=== PATIENT | female | born 1995 | race Caucasian/White ===

== ENCOUNTER 2021-05-30 11:51 | Inpatient (IN) | payer BC ==
[2021-05-30] MEDS ORDERED: Acetaminophen 325 MG Tab PO PRN (12:59)
[2021-05-30] MEDS ORDERED: Nalbuphine 10 MG/1 ML Vial IVPUSH PRN (12:59)
[2021-05-30] MEDS ORDERED: Sodium Chloride 0.9% 10 ML Syringe FLUSH PRN (12:59)
[2021-05-30] MEDS ORDERED: Misoprostol 25 MCG (1/4 of 100 MCG) Tab VAG PRN (12:59)
[2021-05-30] MEDS ORDERED: Oxytocin/Lactated Ringers 10 UNIT/1,000 ML BAG IV SCH (13:00)
[2021-05-30] MEDS ORDERED: Lactated Ringers 1,000 ML IV SCH ×2 (13:00→23:45)
--- NOTE | 2021-05-30 13:11 | PCM.LDHP ---
L&D History of Present Illness - General Date of Service: 05/30/21 Admit Problem/Dx: Patient Status Order with Admit Dx/Problem 05/30/21 13:00 Patient Status [ADT] Routine Admission Diagnosis/Problem Admission Diagnosis/Problem 41 weeks gestation of Source of Information: Patient History Limitations: Reports: No Limitations - History of Present Illness Introduction:: Araceli Zhang is a 25-year-old G1, P0 female at 41 weeks 1 day (ADAN 05/22/2021) by a 5-week ultrasound who presents for induction of labor in the se tting of late term . Patient had been checked in the office on her appointment on 05/27/2021 and had membrane stripping performed at that time without any significant contractions since having the membranes stripped. She states that she had been having some intermittent low back pain that was not consistent or regular. She denies any leaking of fluid or vaginal bleeding. Reports that she did have some mucus discharge. She reports good movement. Location, : Reports: Lower back Quality: Reports: Pressure, Throbbing Severity: Mild Associated Symptoms: Denies: vaginal bleeding, vaginal discharge, vaginal fluid Present Illness Comments:: Araceli Zhang is a 25-year-old G1, P0 female at 41 weeks 1 day (ADAN 05/22/2021) by a 5-week ultrasound who presents for induction of labor in the setting of late term . She has had routine care with Dr. Woo starting at 5 weeks gestational age. She denies any complications during this . She received Tdap vaccine on 03/29/2021. She received the influenza vaccine on 09/07/2020. She has not had any concerns throughout the . Her is complicated by: * Obesity in with BMI of 42 [facility] history G1: Current labs Blood type: O+ Antibody screen: Negative First trimester hematocrit/hemoglobin: 37.6%/12.8 on 11/23/2020 Platelets: 265 on 11/23/2020 Urine culture: Negative Rubella status: Immune Hepatitis B surface antigen: Negative RPR: Negative Hepatitis C: Negative HIV: Negative Gonorrhea: Negative Chlamydia: Negative One hour glucose tolerance test: 100 Second trimester hematocrit/hemoglobin: 37.0%/12.5 on 02/01/2021 Platelets: 287 on 02/01/2021 GBS status: Negative - Related Data Allergies/Adverse Reactions: Allergies Allergy/AdvReac Type Severity Reaction Status Date / Time Sulfa (Sulfonamide Allergy Cannot Verified 10/24/16 13:46 Antibiotics) Remember Home Medications: Home Meds Acetaminophen/oxyCODONE [Percocet 325-5 MG] 1 tab PO Q6H PRN #10 tablet 10/24/16 [Rx] Pnv No.95/Ferrous Fum/Folic AC [ Caplet] 1 tab-cap PO DAILY 05/30/21 [History] Past Medical History - Past Health History Medical/Surgical History: Denies Medical/Surgical History - Past Surgical History HEENT Surgical History: Reports: Oral Surgery, Other (See Below) ([place] teeth extraction) Social & Family History - Tobacco Use Tobacco Use Status *Q: Never Tobacco User Tobacco Use Within Last Twelve Months: No - Tobacco Core Measures Tobacco Use/Smoking Within Last 30 Days: No Smokeless Tobacco Use in Last 30 Days: No - Caffeine Use Caffeine Use: Reports: None - Alcohol Use Alcohol Use History: No Alcohol Use in Last Twelve Months: No - Recreational Drug Use Recreational Drug Use: No Drug Use in Last 12 Months: No - Living Situation & Occupation Living situation: Reports: , with Spouse H&P Review of Systems - Review of Systems: Review Of Systems: See Below General: Denies: Fever, Chills, Malaise, Weakness, Fatigue HEENT: Reports: Glasses. Denies: Headaches, Rhinitis, Post Nasal Drip, Sinus Congestion, Sore Throat, Visual Changes Pulmonary: Denies: Shortness of Breath, Wheezing, Pleuritic Chest Pain, Cough Cardiovascular: Denies: Chest Pain, Palpitations, Dyspnea on Exertion, Orthopnea Gastrointestinal: Denies: Abdominal Pain, Constipation, Diarrhea, Nausea, Vomiting Genitourinary: Denies: Dysuria, Frequency, Burning, Pain, Urgency Musculoskeletal: Reports: Back Pain Skin: Denies: Rash, Lumps Psychiatric: Denies: Depression, Anxiety L&D Exam - Exam Exam: See Below - Vital Signs Vital Signs: Last Vital Signs Temp 36.7 C 05/30/21 12:09 Pulse 86 05/30/21 12:09 Resp 16 05/30/21 12:09 BP 145/88 H 05/30/21 12:09 Pulse Ox 98 05/30/21 12:09 Weight: 117.934 kg - OB Specific Contraction Duration (sec): 60-75 Contraction Frequency (min): 4-7 Contraction Intensity: Mild Movement: Active Heart Tones: Present Heart Tones per Min: 130 (+15 x 15 accelerations, no decelerations) Heart Rate (FHR) Variability: Moderate (6-25 bmp) Presentation: Vertex Estimated Weight: 8-8.5 pounds by Milo - Webster Score Webster Score Cervix Position: Posterior Webster Score Consistency: Soft Webster Score Effacement: >80% (80%) Webster Score Dilation: 1-2 cm (2 cm) Webster Score Infant's Station: -3 Webster Score Total: 6 - Exam General: Alert, Oriented HEENT: Conjunctiva Clear, EOMI Neck: Supple, Trachea Midline Lungs: Clear to Auscultation, Normal Respiratory Effort Cardiovascular: Regular Rate, Regular Rhythm GI/Abdominal Exam: Soft, Non-Tender, No Distention, Other. No: Guarding, Rigid, Rebound Genitourinary: Normal external exam, Cervical dilitation (1 cm by visual inspection), Other (A 16 Lithuanian Menezes catheter was placed using direct visualization with a speculum and the catheter was filled with 40 mL of sterile saline. Mother and tolerated procedure without difficulty.) Skin: Warm, Dry, Intact Psychiatric: Alert, Normal Affect, Normal Mood - Problem List (1) 41 weeks gestation of SNOMED Code(s): 97720353 ICD Code: Z3A.41 - 41 WEEKS GESTATION OF Status: Acute Current Visit: Yes (2) Obesity affecting SNOMED Code(s): 699230594779, 390525625654 ICD Code: O99.210 - OBESITY COMPLICATING , UNSPECIFIED TRIMESTER Status: Acute Current Visit: Yes Problem List Initiated/Reviewed/Updated: Yes Orders Last 24hrs: Active Orders 24 hr Category Date Time Status Patient Status [ADT] Routine ADT 05/30/21 13:00 Ordered Activity as Tolerated [RC] PFP Care 05/30/21 13:00 Ordered Communication Order [RC] ASDIRECTED Care 05/30/21 13:00 Ordered Communication Order [RC] ASDIRECTED Care 05/30/21 13:00 Ordered Communication Order [RC] ASDIRECTED Care 05/30/21 13:00 Ordered Communication Order [RC] ASDIRECTED Care 05/30/21 13:00 Ordered Heart Tones [RC] ASDIRECTED Care 05/30/21 13:01 Ordered Monitoring [RC] INTERMITTENT Care 05/30/21 13:00 Ordered Non Stress Test [RC] PER UNIT ROUTINE Care 05/30/21 13:00 Ordered Notify Provider Vital Signs [RC] PRN Care 05/30/21 13:02 Ordered Notify Provider [RC] ASDIRECTED Care 05/30/21 13:00 Ordered Notify Provider [RC] ASDIRECTED Care 05/30/21 13:04 Ordered Notify Provider [RC] PFP Care 05/30/21 13:00 Ordered Notify Provider [RC] PRN Care 05/30/21 13:00 Ordered Peripheral IV Care [RC] . DIRECTED Care 05/30/21 13:01 Ordered Pump Management, Intrathecal [RC] ASDIRECTED Care 05/30/21 13:01 Ordered Urinary Catheter Assessment [RC] ASDIRECTED Care 05/30/21 12:59 Ordered Vaginal Exam [RC] ASDIRECTED Care 05/30/21 13:00 Ordered Vital Signs [RC] ASDIRECTED Care 05/30/21 13:00 Ordered Vital Signs [RC] PER UNIT ROUTINE Care 05/30/21 13:00 Ordered Regular Diet [DIET] Diet 05/30/21 Lunch Ordered CBC WITH AUTO DIFF [HEME] Routine Lab 05/30/21 12:59 Ordered COMPREHENSIVE METABOLIC PN,CMP [CHEM] Routine Lab 05/30/21 12:59 Ordered PROTEIN/CREATININE RATIO,URINE [URCHEM] Routine Lab 05/30/21 12:59 Ordered RAPID PLASMA REAGIN,RPR [CHEM] Routine Lab 05/30/21 13:00 Ordered TYPE AND SCREEN [BBK] Routine Lab 05/30/21 12:59 Ordered Acetaminophen [TylenoL] Med 05/30/21 12:59 Ordered 650 mg PO Q6H PRN Lactated Ringers [Ringers, Lactated] 1,000 ml Med 05/30/21 13:00 Ordered IV ASDIRECTED Nalbuphine [Nubain] Med 05/30/21 12:59 Ordered 10 mg IVPUSH Q2H PRN Oxytocin/Lactated Ringers [Pitocin in LR 10 Units/1,000 Med 05/30/21 13:00 Ordered ML] 10 unit in 1,000 ml IV .CONTINUOUS Sodium Chloride 0.9% [Saline Flush] Med 05/30/21 12:59 Ordered 10 ml FLUSH ASDIRECTED PRN miSOPROStoL [Cytotec] Med 05/30/21 12:59 Ordered 25 mcg VAG Q4H PRN Electronic Heart Tones Ext w TOCO [WOMSER] Oth 05/30/21 13:00 Ordered Routine Electronic Heart Tones Internal [WOMSER] Per Unit Oth 05/30/21 13:00 Ordered Routine Peripheral IV Insertion Adult [OM.PC] Routine Oth 05/30/21 13:00 Ordered Resuscitation Status Routine Resus Stat 05/30/21 12:59 Ordered Assessment/Plan Comment:: Araceli Zhang is a 25-year-old G1, P0 female at 41 weeks 1 day (ADAN 05/22/2021) undergoing induction of labor in the setting of late term * Refer to observation for elective induction of labor * Patient had placement of a 16 [place]ian Menezes bulb catheter with direct visualization and the Menezes bulb was filled with 40 mL of sterile saline. Mother and infant tolerated procedure without difficulty. * Start induction of labor with Cytotec 25 mcg vaginally now and every 4 hours * Intermittent monitoring while on Cytotec with monitoring for 30 minutes after placement of Cytotec and may ambulate as tolerated with category 1 monitoring * Place IV and have Lactated Ringer's at 125 ml/hr if not tolerating regular diet * May have regular diet while on Cytotec induction * Activity as tolerated * May have epidural as desired * Plans to breast-feed after delivery * Patient with 1 mild range blood pressure with a value of 145/88 and we will get labs including CBC, CMP, LDH and urine protein/creatinine ratio. We will continue to monitor blood pressures closely throughout the induction to ensure that there is not any evidence of gestational hypertension or preeclampsia * Anticipate vaginal delivery unless otherwise indicated Gus Gomez MD 1:17 PM 05/30/2021
--- NOTE | 2021-05-30 14:17 | PCM.PREANE ---
Preanesthetic Assessment - Procedure Proposed Procedure: Labor epidural - Anesthesia/Transfusion/Family Hx Anesthesia History: Prior Anesthesia Without Reaction Family History of Anesthesia Reaction: No Transfusion History: No Prior Transfusion(s) Intubation History: Unknown - Review of Systems General: No Symptoms Pulmonary: No Symptoms Cardiovascular: Edema (Lower extremities) Gastrointestinal: Abdominal Pain (uterine contractions) Neurological: Tingling (Tingling to pointer, middle, and ring finger tips that occurred during ) - Physical Assessment NPO Status Date: 05/30/21 NPO Status Time: 14:10 Vital Signs: Last Vital Signs Temp 98.0 F 05/30/21 12:09 Pulse 86 05/30/21 12:09 Resp 16 05/30/21 12:09 BP 145/88 H 05/30/21 12:09 Pulse Ox 98 05/30/21 12:09 Height: 1.68 m Weight: 117.934 kg ASA Class: 2 Mental Status: Alert & Oriented x3 Airway Class: Mallampati = 2 Dentition: Reports: Normal Dentition Thyro-Mental Finger Breadths: 3 Mouth Opening Finger Breadths: 3 Lungs: Clear to Auscultation, Normal Respiratory Effort Cardiovascular: Regular Rate, Regular Rhythm - Lab Values: Laboratory Last Values WBC 9.06 K/mm3 (3.98-10.04) 05/30/21 13:19 RBC 3.62 M/mm3 (3.98-5.22) L 05/30/21 13:19 Hgb 12.1 gm/dl (11.2-15.7) 05/30/21 13:19 Hct 36.4 % (34.1-44.9) 05/30/21 13:19 MCV 100.6 fl (79.4-94.8) H 05/30/21 13:19 MCH 33.4 pg (25.6-32.2) H 05/30/21 13:19 MCHC 33.2 g/dl (32.2-35.5) 05/30/21 13:19 RDW Std Deviation 45.9 fL (36.4-46.3) 05/30/21 13:19 Plt Count 234 K/mm3 (182-369) 05/30/21 13:19 MPV 11.4 fl (9.4-12.3) 05/30/21 13:19 Neut % (Auto) 65.6 % (34.0-71.1) 05/30/21 13:19 Lymph % (Auto) 21.1 % (19.3-51.7) 05/30/21 13:19 [place] % (Auto) 11.7 % (4.7-12.5) 05/30/21 13:19 Eos % (Auto) 0.9 (0.7-5.8) 05/30/21 13:19 Baso % (Auto) 0.3 % (0.1-1.2) 05/30/21 13:19 Neut # (Auto) 5.94 K/mm3 (1.56-6.13) 05/30/21 13:19 Lymph # (Auto) 1.91 K/mm3 (1.18-3.74) 05/30/21 13:19 [place] # (Auto) 1.06 K/mm3 (0.24-0.36) H 05/30/21 13:19 Eos # (Auto) 0.08 K/mm3 (0.04-0.36) 05/30/21 13:19 Baso # (Auto) 0.03 K/mm3 (0.01-0.08) 05/30/21 13:19 Sodium 140 mEq/L (136-145) 05/30/21 13:19 Potassium 4.5 mEq/L (3.5-5.1) 05/30/21 13:19 Chloride 106 mEq/L (98-107) 05/30/21 13:19 Carbon Dioxide 25 mEq/L (21-32) 05/30/21 13:19 Anion Gap 13.5 (5-15) 05/30/21 13:19 BUN 10 mg/dL (7-18) 05/30/21 13:19 Creatinine 0.9 mg/dL (0.55-1.02) 05/30/21 13:19 Est Cr Clr Drug Dosing 88.68 mL/min 05/30/21 13:19 Estimated GFR (MDRD) > 60 mL/min (>60) 05/30/21 13:19 BUN/Creatinine Ratio 11.1 (14-18) L 05/30/21 13:19 Glucose 74 mg/dL (70-99) 05/30/21 13:19 Calcium 8.6 mg/dL (8.5-10.1) 05/30/21 13:19 Total Bilirubin 0.3 mg/dL (0.2-1.0) 05/30/21 13:19 AST 21 U/L (15-37) 05/30/21 13:19 ALT 15 U/L (14-59) 05/30/21 13:19 Alkaline Phosphatase 217 U/L (46-116) H 05/30/21 13:19 Total Protein 5.9 g/dl (6.4-8.2) L 05/30/21 13:19 Albumin 2.2 g/dl (3.4-5.0) L 05/30/21 13:19 Globulin 3.7 gm/dL 05/30/21 13:19 Albumin/Globulin Ratio 0.6 (1-2) L 05/30/21 13:19 Labs reviewed and okay to proceed - Allergies Allergies/Adverse Reactions: Allergies Allergy/AdvReac Type Severity Reaction Status Date / Time Sulfa (Sulfonamide Allergy Cannot Verified 10/24/16 13:46 Antibiotics) Remember - Blood Product(s) Available: None - Acknowledgements Anesthesia Type Planned: Epidural Pt an Appropriate Candidate for the Planned Anesthesia: Yes Alternatives and Risks of Anesthesia Discussed w Pt/Guardian: Yes Pt/Guardian Understands and Agrees with Anesthesia Plan: Yes PreAnesthesia Questionnaire - Past Health History Medical/Surgical History: Denies Medical/Surgical History Gastrointestinal History: Reports: GERD 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 Musculoskeletal History: History of shoulder contusion - Past Surgical History HEENT Surgical History: Reports: Oral Surgery, Other (See Below) ([place] teeth extraction) - SUBSTANCE USE Tobacco Use Status *Q: Never Tobacco User Tobacco Use Within Last Twelve Months: No Second Hand Smoke Exposure: No Recreational Drug Use History: No - HOME MEDS Home Medications: Home Meds Acetaminophen/oxyCODONE [Percocet 325-5 MG] 1 tab PO Q6H PRN #10 tablet 10/24/16 [Rx] Pnv No.95/Ferrous Fum/Folic AC [ Caplet] 1 tab-cap PO DAILY 05/30/21 [History] - CURRENT (IN HOUSE) MEDS Current Meds: Current Medications Acetaminophen (Acetaminophen 325 Mg Tab) 650 mg PO Q6H PRN PRN Reason: Pain (Mild 1-3) and fever Lactated Ringer's (Ringers, Lactated) 1,000 mls @ 100 mls/hr IV ASDIRECTED ALEJANDRO Oxytocin/Lactated Ringer's (Pitocin In Lr 10 Units/1,000 Ml) 10 unit in 1,000 mls @ 100 mls/hr IV .CONTINUOUS ALEJANDRO Misoprostol (Misoprostol 25 Mcg (1/4 Of 100 Mcg) Tab) 25 mcg VAG Q4H PRN PRN Reason: cervical ripening Last Admin: 05/30/21 13:29 Dose: 25 mcg Documented by: Nalbuphine HCl (Nalbuphine 10 Mg/1 Ml Vial) 10 mg IVPUSH Q2H PRN PRN Reason: Pain Sodium Chloride (Sodium Chloride 0.9% 10 Ml Syringe) 10 ml FLUSH ASDIRECTED PRN PRN Reason: Keep Vein Open
[2021-05-30] MEDS ORDERED: ePHEDrine 50 MG/ML SDV IVPUSH PRN (14:36)
[2021-05-30] MEDS ORDERED: fentaNYL 100 MCG/2 ML SDV EPIDUR PRN (14:36)
[2021-05-30] MEDS ORDERED: diphenhydrAMINE 50 MG/ML SDV IVPUSH PRN (14:36)
[2021-05-30] MEDS: Oxytocin/Lactated Ringers 10 UNIT/1,000 ML BAG IV SCH (17:38)
--- NOTE | 2021-05-30 17:50 | PCM.PNLD ---
Labor Progress Note - VS & Meds Vital Signs: Last Vital Signs Temp 36.7 C 05/30/21 12:09 Pulse 86 05/30/21 12:09 Resp 16 05/30/21 12:09 BP 145/88 H 05/30/21 12:09 Pulse Ox 98 05/30/21 12:09 Active Medications: Current Medications Acetaminophen (Acetaminophen 325 Mg Tab) 650 mg PO Q6H PRN PRN Reason: Pain (Mild 1-3) and fever Diphenhydramine HCl (Diphenhydramine 50 Mg/Ml Sdv) 25 mg IVPUSH Q6H PRN PRN Reason: pruritis Ephedrine Sulfate (Ephedrine 50 Mg/Ml Sdv) 5 mg IVPUSH ASDIRECTED PRN PRN Reason: Hypotension Fentanyl (Fentanyl 100 Mcg/2 Ml Sdv) 100 mcg EPIDUR Q3H PRN PRN Reason: Pain Fentanyl/Bupivacaine HCl (Bupivacaine/Fentanyl/Ns 100 Ml Bag) 100 ml EPIDUR ASDIRECTED PRN PRN Reason: Pain Lactated Ringer's (Ringers, Lactated) 1,000 mls @ 100 mls/hr IV ASDIRECTED ALEJANDRO Last Admin: 05/30/21 17:24 Dose: 100 mls/hr Documented by: Oxytocin/Lactated Ringer's (Pitocin In Lr 10 Units/1,000 Ml) 10 unit in 1,000 mls @ 100 mls/hr IV .CONTINUOUS ALEJANDRO Oxytocin/Lactated Ringer's (Pitocin In Lr 10 Units/1,000 Ml) 10 unit in 1,000 mls @ 12 mls/hr IV TITRATE ALEJANDRO; Protocol Last Admin: 05/30/21 17:38 Dose: 2 munits/min, 12 mls/hr Documented by: Misoprostol (Misoprostol 25 Mcg (1/4 Of 100 Mcg) Tab) 25 mcg VAG Q4H PRN PRN Reason: cervical ripening Last Admin: 05/30/21 13:29 Dose: 25 mcg Documented by: Nalbuphine HCl (Nalbuphine 10 Mg/1 Ml Vial) 10 mg IVPUSH Q2H PRN PRN Reason: Pain Sodium Chloride (Sodium Chloride 0.9% 10 Ml Syringe) 10 ml FLUSH ASDIRECTED PRN PRN Reason: Keep Vein Open - Uterine Contractions Contraction Frequency (min): 3-7 Contraction Duration (sec): 60-75 Contraction Intensity: Mild to Moderate Uterine Resting Tone: Soft - Monitoring Monitor Mode: Doppler/Auscultation Heart Rate (FHR) Baseline: 125 Heart Rate (FHR) Variability: Moderate (6-25 bmp) Accelerations: Present, 15x15 Decelerations: None Strip Review: Category I - Vaginal Exam Dilation (cm): 3 Effacement (Percent): 80 Station: -2 Cervical Position: Midposition Sterile Vaginal Exam Performed By: Gus Gomez Vaginal Exam Comment: The transcervical Menezes bulb was able to be removed with gentle traction and cervical exam was performed after removal of the Menezes bulb. - Labor Progress (Free Text) Labor Progress: Araceli Zhang is a 25-year-old G1, P0 at 41 weeks 1 day undergoing induction of labor for late term with new diagnosis of preeclampsia in given ongoing mild range blood pressures and elevated urine protein/creatinine ratio of 4.9 * Patient with previous transcervical Menezes bulb in place that was able to be removed at this time. Cervix was 3/80/-2/soft/mid position after removal of the Menezes bulb. * Given the dilation is fairly stable at 3 cm which is not significantly dilated at this time artificial rupture membranes was not performed * Patient had received 1 dose of Cytotec with the placement of the Menezes bulb * Plan to transition to Pitocin with the cervix dilated to 3 cm after the Menezes bulb at this time * Routine vitals at this time with close monitoring of her blood pressure for any severe range blood pressures which may indicate severe features of preeclampsia * Patient denies any headache, vision changes or epigastric pain. * Patient has preeclampsia without severe features given the findings of ongoing mild range blood pressures with elevated urine protein/creatinine ratio of 4.9. The remainder of her labs were within normal limits and were not showing any elevated values. * Patient may have epidural if she desires * Plan to recheck later this evening to see if she is having ongoing dilation of the cervix and we will plan for artificial rupture membranes at that time * Anticipate vaginal delivery unless otherwise indicated Gus Gomez MD 5:49 PM 05/29/2021
[2021-05-30] MEDS ORDERED: Magnesium Sulfate/Water 50 ML ONE (21:28)
[2021-05-30] MEDS ORDERED: Magnesium Sulfate/Water 40 GM/1,000 ML BAG ONE (21:28)
[2021-05-30] MEDS: Labetalol 100 MG/20 ML MDV ONE ×2 (21:30→21:54)
[2021-05-30] MEDS ORDERED: Ondansetron 4 MG/2 ML SDV ONE (21:48)
[2021-05-30] MEDS ORDERED: Magnesium Sulfate/Water 40 GM/1,000 ML BAG IV SCH (22:00)
[2021-05-30] MEDS: Bupivacaine/fentaNYL/NS 100 ML Bag EPIDUR PRN (22:01)
--- NOTE | 2021-05-30 22:01 | PCM.PNLD ---
Labor Progress Note - VS & Meds Vital Signs: Last Vital Signs Temp 36.7 C 05/30/21 12:09 Pulse 86 05/30/21 12:09 Resp 16 05/30/21 12:09 BP 145/88 H 05/30/21 12:09 Pulse Ox 98 05/30/21 12:09 Active Medications: Current Medications Acetaminophen (Acetaminophen 325 Mg Tab) 650 mg PO Q6H PRN PRN Reason: Pain (Mild 1-3) and fever Diphenhydramine HCl (Diphenhydramine 50 Mg/Ml Sdv) 25 mg IVPUSH Q6H PRN PRN Reason: pruritis Ephedrine Sulfate (Ephedrine 50 Mg/Ml Sdv) 5 mg IVPUSH ASDIRECTED PRN PRN Reason: Hypotension Fentanyl (Fentanyl 100 Mcg/2 Ml Sdv) 100 mcg EPIDUR Q3H PRN PRN Reason: Pain Fentanyl/Bupivacaine HCl (Bupivacaine/Fentanyl/Ns 100 Ml Bag) 100 ml EPIDUR ASDIRECTED PRN PRN Reason: Pain Lactated Ringer's (Ringers, Lactated) 1,000 mls @ 100 mls/hr IV ASDIRECTED ALEJANDRO Last Admin: 05/30/21 17:24 Dose: 100 mls/hr Documented by: Oxytocin/Lactated Ringer's (Pitocin In Lr 10 Units/1,000 Ml) 10 unit in 1,000 mls @ 100 mls/hr IV .CONTINUOUS ALEJANDRO Oxytocin/Lactated Ringer's (Pitocin In Lr 10 Units/1,000 Ml) 10 unit in 1,000 mls @ 12 mls/hr IV TITRATE ALEJANDRO; Protocol Last Titration: 05/30/21 18:20 Dose: 4 munits/min, 24 mls/hr Documented by: Misoprostol (Misoprostol 25 Mcg (1/4 Of 100 Mcg) Tab) 25 mcg VAG Q4H PRN PRN Reason: cervical ripening Last Admin: 05/30/21 13:29 Dose: 25 mcg Documented by: Nalbuphine HCl (Nalbuphine 10 Mg/1 Ml Vial) 10 mg IVPUSH Q2H PRN PRN Reason: Pain Sodium Chloride (Sodium Chloride 0.9% 10 Ml Syringe) 10 ml FLUSH ASDIRECTED PRN PRN Reason: Keep Vein Open Discontinued Medications Magnesium Sulfate (Magnesium Sulfate In Water 4 Gm/50 Ml) Confirm Administered Dose 50 mls @ as directed .ROUTE .STK-MED ONE Stop: 05/30/21 21:29 Magnesium Sulfate (Magnesium Sulfate In Water 40 Gm/1000 Ml) Confirm Administered Dose 40 gm in 1,000 mls @ as directed .ROUTE .STK-MED ONE Stop: 05/30/21 21:29 Labetalol HCl (Labetalol 100 Mg/20 Ml Mdv) Confirm Administered Dose 100 mg .ROUTE .STK-MED ONE Stop: 05/30/21 21:22 Ondansetron HCl (Ondansetron 4 Mg/2 Ml Sdv) Confirm Administered Dose 4 mg .ROUTE .STK-MED ONE Stop: 05/30/21 21:49 - Uterine Contractions Contraction Frequency (min): 2-4 Contraction Duration (sec): 60-75 Contraction Intensity: Moderate to Strong Uterine Resting Tone: Soft - Monitoring Monitor Mode: Doppler/Auscultation Heart Rate (FHR) Baseline: 120 Heart Rate (FHR) Variability: Moderate (6-25 bmp) Accelerations: Present, 15x15 Decelerations: Early, Variable (intermittent variable decelerations with contractions) Strip Review: Category II - Vaginal Exam Dilation (cm): 4 Effacement (Percent): 90 Station: -2 Cervical Position: Midposition Sterile Vaginal Exam Performed By: Gus Gomez Vaginal Exam Comment: Artificial rupture membranes performed with return of moderate amount of clear fluid. Mother and infant tolerated procedure without difficulty. - Labor Progress (Free Text) Labor Progress: Araceli Zhang is a 25-year-old G1, P0 at 41 weeks 1 day undergoing induction of labor for late term with new diagnosis of preeclampsia with severe features with new onset sustained severe range blood pressures with treatment with labetalol x2 doses * Patient with artificial rupture membranes with return of moderate amount of clear fluid. Mother and tolerated procedure without difficulty * Patient with sustained severe range blood pressures and was treated with labetalol 20 mg IV and then 40 mg IV. * Start on magnesium sulfate IV with a 4 g bolus then 2 g/h afterwards with plan to continue for 24 hours after delivery * Continue with close monitoring of vitals vitals to ensure that she is not having any severe range pressures which would indicate additional need for medical therapy * Patient denies any headache, vision changes or epigastric pain. * Continue Pitocin for augmentation of labor * Patient may have epidural if she desires * Anticipate vaginal delivery unless otherwise indicated Gus Gomez MD 10:06 PM 05/29/2021
[2021-05-30] MEDS ORDERED: Calcium Gluconate 10% 1 GM/10 ML SDV IV PRN (22:11)
[2021-05-30] MEDS ORDERED: Magnesium Sulfate/Water 4 GM in Premix Bag 1 BAG IV ONE (22:16)
[2021-05-30] MEDS ORDERED: Magnesium Sulfate/Water 2 GM in Premix Bag 1 BAG IV ONE (22:16)
[2021-05-31] MEDS ORDERED: Calcium Carbonate 500 MG Tab.Chew PO PRN (03:27)
[2021-05-31] MEDS: Bupivacaine/fentaNYL/NS 100 ML Bag EPIDUR PRN (05:12)
[2021-05-31] MEDS ORDERED: Dexmedetomidine 200 MCG/2 ML SDV ONE (07:18)
[2021-05-31] MEDS ORDERED: fentaNYL 100 MCG/2 ML SDV ONE (07:22)
[2021-05-31] MEDS: Oxytocin/Lactated Ringers 10 UNIT/1,000 ML BAG IV SCH (08:56)
[2021-05-31] MEDS ORDERED: Misoprostol 200 MCG Tab PO ONE (12:30)
[2021-05-31] MEDS ORDERED: Sodium Chloride 0.9% 1,000 ML ONE (12:41)
[2021-05-31] MEDS ORDERED: Sodium Chloride 0.9% 1,000 ML IV SCH (12:45)
[2021-05-31] MEDS ORDERED: Misoprostol 200 MCG Tab ONE (13:00)
[2021-05-31] MEDS ORDERED: Sodium Chloride 0.9% 500 ML ONE (13:08)
--- NOTE | 2021-05-31 14:06 | PCM.SN.2 ---
- Free Text/Narrative Note: Stage I - Patient presented for induction of labor. Menezes bulb. AROM. Pitocin. Elevated blood pressures requiring labetolol. Diagnosed with pre-ecclampsia. Magnesium initiated. Progressed to complete with overall reassuring heart tones. Stage II - of viable male, weight 8#11 oz. 4/9 apgars at 1222. Head de livered in controlled manner over intact perineum. Body and shoulders followed atraumatically. Cord clamped and cut and to warmer. Cord blood collected. Stage III - of intact placenta. Immediately vigorous bleeding per vagina. Bladder emptied with straight catheter. Bimanual massage revealed boggy uterus. Continued bleeding. Magnesium discontinued. Cytotec 600 mcg buccal given. TXA initiated. Vigourous bleeding continued. Decision made to obtain labs and emergency release of 2 units pRBC and obtain labs. Bakri placed in usual fashion. INstilled with 360. QBL 3000. Bleeding after bakri minimal.
[2021-05-31] MEDS ORDERED: Lidocaine 1.5% with EPINEPHrine 1:200,000 5 ML Amp ONE (16:00)
[2021-05-31] MEDS ORDERED: Bupivacaine 0.25% 10 ML SDV ONE (16:00)
[2021-05-31] MEDS ORDERED: Witch Hazel Medicated Pads 40/Jar TOP PRN (16:06)
[2021-05-31] MEDS ORDERED: Benzocaine/Menthol 20%-0.5% Spray 56 GM Canister TOP PRN (16:06)
[2021-05-31] MEDS ORDERED: cefOXitin 1 GM in Premix Bag 1 BAG IV ONE (18:50)
--- NOTE | 2021-05-31 19:05 | PCM.SN.2 ---
- Free Text/Narrative Note: S- Feeling well. Some pain. No complaints. No headaches or visual changes O- t- 100.1, Tmax - 100.1. Blood pressures 128/85 Fundus above umbilicus with bakri in place. Output from bakri 50 mL A - Doing well, minimal output from bakri CBC minimal drop after significant hemorrhage and 2 uPRBC. Will recheck in morning Severe pre-e - magnesium discontinued during acute hemorrhage. Given risk of bleeding and elevated creatinine will leave magnesium off. hold ibuprofen for now UOP increasing and clearing. Watch output closely. Repeat labs in the am.
[2021-05-31] MEDS ORDERED: Acetaminophen/oxyCODONE 325-5 MG Tab PO PRN (19:14)
[2021-05-31] MEDS: Acetaminophen 325 MG Tab PO PRN (20:21)
[2021-06-01] MEDS: Acetaminophen 325 MG Tab PO PRN ×2 (02:34→19:02)
--- NOTE | 2021-06-01 10:15 | PCM.PNPP ---
- General Info Date of Service: 06/01/21 Subjective Update: PPD1 after on magnesium for pre-ecclampsia and hemorrhage with TXA, cytotec, bakri balloon and 2 units pRBCs. Up with assist from nurse over night and fairly tired and unsteady. Pain controlled. Functional Status: Reports: Pain Controlled - Review of Systems General: Reports: No Symptoms HEENT: Reports: No Symptoms Pulmonary: Reports: No Symptoms Cardiovascular: Reports: No Symptoms Gastrointestinal: Reports: No Symptoms Genitourinary: Reports: No Symptoms Musculoskeletal: Reports: No Symptoms Skin: Reports: No Symptoms Neurological: Reports: No Symptoms Psychiatric: Reports: No Symptoms - General Info Date of Service: 06/01/21 - Patient Data Vital Signs - Most Recent: Last Vital Signs Temp 36.7 C 06/01/21 06:17 Pulse 80 06/01/21 06:17 Resp 16 06/01/21 06:17 BP 134/77 06/01/21 06:17 Pulse Ox 98 06/01/21 06:17 Weight - Most Recent: 117.934 kg I&O - Last 24 Hours: Intake & Output 05/31/21 06/01/21 06/01/21 22:59 06:59 14:59 Intake Total 0 Output Total 847 1470 Balance -847 -1470 Lab Results - Last 24 Hours: Laboratory Results - last 24 hr 05/30/21 05/31/21 05/31/21 Range/Units 13:19 12:35 12:35 WBC 14.36 H (3.98-10.04) K/mm3 RBC 3.33 L (3.98-5.22) M/mm3 Hgb 11.1 L (11.2-15.7) gm/dl Hct 33.5 L (34.1-44.9) % MCV 100.6 H (79.4-94.8) fl MCH 33.3 H (25.6-32.2) pg MCHC 33.1 (32.2-35.5) g/dl RDW Std Deviation 45.5 (36.4-46.3) fL Plt Count 219 (182-369) K/mm3 MPV 10.9 (9.4-12.3) fl Neut % (Auto) (34.0-71.1) % Lymph % (Auto) (19.3-51.7) % [place] % (Auto) (4.7-12.5) % Eos % (Auto) (0.7-5.8) Baso % (Auto) (0.1-1.2) % Neut # (Auto) (1.56-6.13) K/mm3 Lymph # (Auto) (1.18-3.74) K/mm3 [place] # (Auto) (0.24-0.36) K/mm3 Eos # (Auto) (0.04-0.36) K/mm3 Baso # (Auto) (0.01-0.08) K/mm3 Manual Slide Review PT 9.3 L (9.7-12.0) SECONDS INR < 0.93 APTT 21.9 (21.7-31.4) SECONDS Fibrinogen 436 (187-446) mg/dL Sodium (136-145) mEq/L Potassium (3.5-5.1) mEq/L Chloride (98-107) mEq/L Carbon Dioxide (21-32) mEq/L Anion Gap (5-15) BUN (7-18) mg/dL Creatinine (0.55-1.02) mg/dL Est Cr Clr Drug Dosing mL/min Estimated GFR (MDRD) (>60) mL/min BUN/Creatinine Ratio (14-18) Glucose (70-99) mg/dL Calcium (8.5-10.1) mg/dL Total Bilirubin (0.2-1.0) mg/dL AST (15-37) U/L ALT (14-59) U/L Alkaline Phosphatase (46-116) U/L Total Protein (6.4-8.2) g/dl Albumin (3.4-5.0) g/dl Globulin gm/dL Albumin/Globulin Ratio (1-2) Crossmatch See Detail 05/31/21 05/31/21 05/31/21 Range/Units 12:35 16:10 16:10 WBC 29.21 H (3.98-10.04) K/mm3 RBC 3.73 L (3.98-5.22) M/mm3 Hgb 11.9 (11.2-15.7) gm/dl Hct 35.2 (34.1-44.9) % MCV 94.4 D (79.4-94.8) fl MCH 31.9 (25.6-32.2) pg MCHC 33.8 (32.2-35.5) g/dl RDW Std Deviation 54.0 H (36.4-46.3) fL Plt Count 223 (182-369) K/mm3 MPV 10.9 (9.4-12.3) fl Neut % (Auto) 87.7 H (34.0-71.1) % Lymph % (Auto) 4.5 L (19.3-51.7) % [place] % (Auto) 7.4 (4.7-12.5) % Eos % (Auto) 0 L (0.7-5.8) Baso % (Auto) 0.1 (0.1-1.2) % Neut # (Auto) 25.64 H (1.56-6.13) K/mm3 Lymph # (Auto) 1.31 (1.18-3.74) K/mm3 [place] # (Auto) 2.16 H (0.24-0.36) K/mm3 Eos # (Auto) 0.00 L (0.04-0.36) K/mm3 Baso # (Auto) 0.02 (0.01-0.08) K/mm3 Manual Slide Review Abnormal smear PT (9.7-12.0) SECONDS INR APTT (21.7-31.4) SECONDS Fibrinogen (187-446) mg/dL Sodium 131 L (136-145) mEq/L Potassium 4.8 (3.5-5.1) mEq/L Chloride 100 (98-107) mEq/L Carbon Dioxide 21 (21-32) mEq/L Anion Gap 14.8 (5-15) BUN 12 (7-18) mg/dL Creatinine 1.2 H (0.55-1.02) mg/dL Est Cr Clr Drug Dosing 66.51 mL/min Estimated GFR (MDRD) 54 (>60) mL/min BUN/Creatinine Ratio 10.0 L (14-18) Glucose 122 H (70-99) mg/dL Calcium 7.9 L (8.5-10.1) mg/dL Total Bilirubin 0.6 (0.2-1.0) mg/dL AST 30 (15-37) U/L ALT 13 L (14-59) U/L Alkaline Phosphatase 178 H (46-116) U/L Total Protein 5.0 L (6.4-8.2) g/dl Albumin 1.8 L (3.4-5.0) g/dl Globulin 3.2 gm/dL Albumin/Globulin Ratio 0.6 L (1-2) Crossmatch See Detail 05/31/21 05/31/21 06/01/21 Range/Units 18:54 19:20 08:36 WBC 27.19 H 19.41 H (3.98-10.04) K/mm3 RBC 3.46 L 3.02 L (3.98-5.22) M/mm3 Hgb 10.9 L 9.4 L D (11.2-15.7) gm/dl Hct 32.2 L 28.7 L (34.1-44.9) % MCV 93.1 95.0 H (79.4-94.8) fl MCH 31.5 31.1 (25.6-32.2) pg MCHC 33.9 32.8 (32.2-35.5) g/dl RDW Std Deviation 55.3 H 58.5 H (36.4-46.3) fL Plt Count 213 179 L (182-369) K/mm3 MPV 10.8 10.5 (9.4-12.3) fl Neut % (Auto) 84.2 H (34.0-71.1) % Lymph % (Auto) 8.6 L (19.3-51.7) % [place] % (Auto) 6.8 (4.7-12.5) % Eos % (Auto) 0 L (0.7-5.8) Baso % (Auto) 0.1 (0.1-1.2) % Neut # (Auto) 22.89 H (1.56-6.13) K/mm3 Lymph # (Auto) 2.33 (1.18-3.74) K/mm3 [place] # (Auto) 1.85 H (0.24-0.36) K/mm3 Eos # (Auto) 0.00 L (0.04-0.36) K/mm3 Baso # (Auto) 0.03 (0.01-0.08) K/mm3 Manual Slide Review Abnormal smear PT (9.7-12.0) SECONDS INR APTT (21.7-31.4) SECONDS Fibrinogen (187-446) mg/dL Sodium 130 L (136-145) mEq/L Potassium 4.6 (3.5-5.1) mEq/L Chloride 100 (98-107) mEq/L Carbon Dioxide 20 L (21-32) mEq/L Anion Gap 14.6 (5-15) BUN 12 (7-18) mg/dL Creatinine 1.2 H (0.55-1.02) mg/dL Est Cr Clr Drug Dosing 66.51 mL/min Estimated GFR (MDRD) 54 (>60) mL/min BUN/Creatinine Ratio 10.0 L (14-18) Glucose 131 H (70-99) mg/dL Calcium 7.9 L (8.5-10.1) mg/dL Total Bilirubin 0.4 (0.2-1.0) mg/dL AST 34 (15-37) U/L ALT 15 (14-59) U/L Alkaline Phosphatase 159 H (46-116) U/L Total Protein 4.7 L (6.4-8.2) g/dl Albumin 1.7 L (3.4-5.0) g/dl Globulin 3.0 gm/dL Albumin/Globulin Ratio 0.6 L (1-2) Crossmatch 06/01/21 Range/Units 08:36 WBC (3.98-10.04) K/mm3 RBC (3.98-5.22) M/mm3 Hgb (11.2-15.7) gm/dl Hct (34.1-44.9) % MCV (79.4-94.8) fl MCH (25.6-32.2) pg MCHC (32.2-35.5) g/dl RDW Std Deviation (36.4-46.3) fL Plt Count (182-369) K/mm3 MPV (9.4-12.3) fl Neut % (Auto) (34.0-71.1) % Lymph % (Auto) (19.3-51.7) % [place] % (Auto) (4.7-12.5) % Eos % (Auto) (0.7-5.8) Baso % (Auto) (0.1-1.2) % Neut # (Auto) (1.56-6.13) K/mm3 Lymph # (Auto) (1.18-3.74) K/mm3 [place] # (Auto) (0.24-0.36) K/mm3 Eos # (Auto) (0.04-0.36) K/mm3 Baso # (Auto) (0.01-0.08) K/mm3 Manual Slide Review PT (9.7-12.0) SECONDS INR APTT (21.7-31.4) SECONDS Fibrinogen (187-446) mg/dL Sodium 137 (136-145) mEq/L Potassium 4.5 (3.5-5.1) mEq/L Chloride 104 (98-107) mEq/L Carbon Dioxide 25 (21-32) mEq/L Anion Gap 12.5 (5-15) BUN 12 (7-18) mg/dL Creatinine 0.8 (0.55-1.02) mg/dL Est Cr Clr Drug Dosing 99.76 mL/min Estimated GFR (MDRD) > 60 (>60) mL/min BUN/Creatinine Ratio 15.0 (14-18) Glucose 82 (70-99) mg/dL Calcium 8.0 L (8.5-10.1) mg/dL Total Bilirubin 0.2 (0.2-1.0) mg/dL AST 30 (15-37) U/L ALT 10 L (14-59) U/L Alkaline Phosphatase 135 H (46-116) U/L Total Protein 4.7 L (6.4-8.2) g/dl Albumin 1.6 L (3.4-5.0) g/dl Globulin 3.1 gm/dL Albumin/Globulin Ratio 0.5 L (1-2) Crossmatch Med Orders - Current: Current Medications Acetaminophen (Acetaminophen 325 Mg Tab) 650 mg PO Q6H PRN PRN Reason: Breakthrough Pain Last Admin: 06/01/21 02:34 Dose: 650 mg Documented by: Benzocaine/Menthol (Benzocaine/Menthol 20%-0.5% [place] 56 Gm Canister) 0 gm TOP ASDIRECTED PRN PRN Reason: Perineal Comfort Measure Last Admin: 05/31/21 16:59 Dose: 1 ea Documented by: Oxycodone/Acetaminophen (Acetaminophen/Oxycodone 325-5 Mg Tab) 1 tab PO Q6H PRN PRN Reason: Pain Witch Lauren (Witch Lauren Medicated Pads 40/Jar) 1 pad TOP ASDIRECTED PRN PRN Reason: Perineal Comfort Measure Last Admin: 05/31/21 16:59 Dose: 1 ea Documented by: Discontinued Medications Acetaminophen (Acetaminophen 325 Mg Tab) 650 mg PO Q6H PRN PRN Reason: Pain (Mild 1-3) and fever Last Admin: 05/31/21 14:37 Dose: 650 mg Documented by: Bupivacaine HCl (Bupivacaine 0.25% 10 Ml Sdv) 10 ml .ROUTE .STK-MED ONE Stop: 05/31/21 16:01 Calcium Carbonate/Glycine (Calcium Carbonate 500 Mg Tab.Chew) 1,000 mg PO Q2HR PRN PRN Reason: Indigestion Last Admin: 05/31/21 04:11 Dose: 1,000 mg Documented by: Calcium Gluconate (Calcium Gluconate 10% 1 Gm/10 Ml Sdv) 1 gm IV ASDIRECTED PRN PRN Reason: respiratory distress Dexmedetomidine HCl (Dexmedetomidine 200 Mcg/2 Ml Sdv) Confirm Administered Dose 200 mcg .ROUTE .STK-MED ONE Stop: 05/31/21 07:19 Diphenhydramine HCl (Diphenhydramine 50 Mg/Ml Sdv) 25 mg IVPUSH Q6H PRN PRN Reason: pruritis Ephedrine Sulfate (Ephedrine 50 Mg/Ml Sdv) 5 mg IVPUSH ASDIRECTED PRN PRN Reason: Hypotension Fentanyl (Fentanyl 100 Mcg/2 Ml Sdv) 100 mcg EPIDUR Q3H PRN PRN Reason: Pain Last Admin: 05/30/21 22:01 Dose: 100 mcg Documented by: Fentanyl (Fentanyl 100 Mcg/2 Ml Sdv) Confirm Administered Dose 100 mcg .ROUTE .STK-MED ONE Stop: 05/31/21 07:23 Fentanyl/Bupivacaine HCl (Bupivacaine/Fentanyl/Ns 100 Ml Bag) 100 ml EPIDUR ASDIRECTED PRN PRN Reason: Pain Last Admin: 05/31/21 05:12 Dose: 100 ml Documented by: Lactated Ringer's (Ringers, Lactated) 1,000 mls @ 100 mls/hr IV ASDIRECTED ALEJANDRO Last Admin: 05/30/21 17:24 Dose: 100 mls/hr Documented by: Oxytocin/Lactated Ringer's (Pitocin In Lr 10 Units/1,000 Ml) 10 unit in 1,000 mls @ 100 mls/hr IV .CONTINUOUS ALEJANDRO Last Infusion: 05/31/21 13:49 Dose: 250 mls/hr Documented by: Oxytocin/Lactated Ringer's (Pitocin In Lr 10 Units/1,000 Ml) 10 unit in 1,000 mls @ 12 mls/hr IV TITRATE ALEJANDRO; Protocol Last Titration: 05/31/21 08:58 Dose: 17 munits/min, 102 mls/hr Documented by: Magnesium Sulfate (Magnesium Sulfate In Water 4 Gm/50 Ml) Confirm Administered Dose 50 mls @ as directed .ROUTE .STK-MED ONE Stop: 05/30/21 21:29 Magnesium Sulfate (Magnesium Sulfate In Water 40 Gm/1000 Ml) Confirm Administered Dose 40 gm in 1,000 mls @ as directed .ROUTE .ST-MED ONE Stop: 05/30/21 21:29 Last Admin: 05/30/21 22:00 Dose: 50 mls/hr Documented by: Magnesium Sulfate 4 gm/ Premix 50 mls @ 400 mls/hr IV ONETIME ONE Stop: 05/30/21 22:23 Last Admin: 05/30/21 21:50 Dose: 400 mls/hr Documented by: Magnesium Sulfate 2 gm/ Premix 50 mls @ 50 mls/hr IV ONETIME ONE Stop: 05/30/21 23:15 Lactated Ringer's (Ringers, Lactated) 1,000 mls @ 25 mls/hr IV ASDIRECTED ALEJANDRO Last Admin: 05/30/21 21:50 Dose: 25 mls/hr Documented by: Magnesium Sulfate (Magnesium Sulfate In Water 40 Gm/1000 Ml) 40 gm in 1,000 mls @ 50 mls/hr IV ASDIRECTED ALEJANDRO Sodium Chloride (Normal Saline) 1,000 mls @ 75 mls/hr IV ASDIRECTED ALEJANDRO Sodium Chloride (Normal Saline) Confirm Administered Dose 1,000 mls @ as directed .ROUTE .ST-MED ONE Stop: 05/31/21 12:42 Sodium Chloride (Normal Saline) Confirm Administered Dose 500 mls @ as directed .ROUTE .[facility]-MED ONE Stop: 05/31/21 13:09 Cefoxitin Sodium 1 gm/ Premix 50 mls @ 100 mls/hr IV ONETIME ONE Stop: 05/31/21 19:19 Last Admin: 05/31/21 19:06 Dose: 100 mls/hr Documented by: Labetalol HCl (Labetalol 100 Mg/20 Ml Mdv) Confirm Administered Dose 100 mg .ROUTE .STK-MED ONE Stop: 05/30/21 21:22 Last Admin: 05/30/21 21:54 Dose: 40 mg Documented by: Lidocaine/Epinephrine (Lidocaine 1.5% With Epinephrine 1:200,000 5 Ml Amp) 5 ml .ROUTE .STK-MED ONE Stop: 05/31/21 16:01 Misoprostol (Misoprostol 25 Mcg (1/4 Of 100 Mcg) Tab) 25 mcg VAG Q4H PRN PRN Reason: cervical ripening Last Admin: 05/30/21 13:29 Dose: 25 mcg Documented by: Misoprostol (Misoprostol 200 Mcg Tab) 600 mcg .ROUTE .STK-MED ONE Stop: 05/31/21 13:01 Misoprostol (Misoprostol 200 Mcg Tab) 600 mcg PO .ONE ONE Stop: 05/31/21 12:31 Last Admin: 05/31/21 12:28 Dose: 600 mcg Documented by: Nalbuphine HCl (Nalbuphine 10 Mg/1 Ml Vial) 10 mg IVPUSH Q2H PRN PRN Reason: Pain Ondansetron HCl (Ondansetron 4 Mg/2 Ml Sdv) Confirm Administered Dose 4 mg .ROUTE .STK-MED ONE Stop: 05/30/21 21:49 Sodium Chloride (Sodium Chloride 0.9% 10 Ml Syringe) 10 ml FLUSH ASDIRECTED PRN PRN Reason: Keep Vein Open Tranexamic Acid (Tranexamic Acid 1,000 Mg/10 Ml Amp) Confirm Administered Dose 1,000 mg .ROUTE .STK-MED ONE Stop: 05/31/21 12:30 Tranexamic Acid (Tranexamic Acid 1,000 Mg/10 Ml Amp) 1,000 mg IVPUSH .ONETIME ONE Stop: 05/31/21 12:46 Last Admin: 05/31/21 12:32 Dose: 1,000 mg Documented by: - Interaction Support Person: - Recovery Exam Fundal Tone: Firm Fundal Level: At Umbilicus Fundal Placement: Midline Lochia Amount: Scant Lochia Color: Rubra/Red Perineum Description: Intact, Minimal Bruising/Swelling Episiotomy/Laceration: Approximated Bladder Status: Indwelling Catheter in Place Urinary Elimination: Indwelling Catheter - Exam General: Alert, Oriented HEENT: Pupils Equal Neck: Supple Lungs: Clear to Auscultation, Normal Respiratory Effort Cardiovascular: Regular Rate, Regular Rhythm GI/Abdominal Exam: Normal Bowel Sounds, Soft, Non-Tender, No Organomegaly, No Distention Extremities: Normal Inspection, Normal Range of Motion, Non-Tender, No Pedal Edema, Normal Capillary Refill Skin: Warm, Dry Wound/Incisions: Healing Well Neurological: No New Focal Deficit Psy/Mental Status: Alert, Normal Affect, Normal Mood - Problem List Review Problem List Initiated/Reviewed/Updated: Yes - My Orders Last 24 Hours: My Active Orders 05/31/21 16:06 Benzocaine/Menthol [Dermoplast Pain Relief [place]] See Dose Instructions TOP ASDIRECTED PRN witch Lauren [Tucks] 1 pad TOP ASDIRECTED PRN Heat Therapy [OM.PC] PRN 05/31/21 16:06 Activity as Tolerated [RC] PER UNIT ROUTINE Vital Signs [RC] Q4HR Assess Lochia [WOMSER] Per Unit Routine Assess Uterine Involution [WOMSER] Per Unit Routine Breast Pump [WOMSER] Per Unit Routine Medication Administration Instruction [OM.PC] Routine Perineal Care [OM.PC] Per Unit Routine Sitz Bath [OM.PC] Per Unit Routine 05/31/21 19:13 Acetaminophen [TylenoL] 650 mg PO Q6H PRN 05/31/21 19:14 Acetaminophen/oxyCODONE [Percocet 325-5 MG] 1 tab PO Q6H PRN 06/01/21 16:06 Heat Therapy [OM.PC] PRN - Assessment Assessment:: PPD1 s/p hemorrhage with initially increased creatinine. Tired but doing well. Repeat labs pending. Bakri removed this morning with minimal output and minimal bleeding after. Urine output adequate and cleared.
--- NOTE | 2021-06-01 15:11 | PCM48HPAN ---
Post Anesthesia Note - EVALUATION WITHIN 48HRS OF ANESTHETIC Vital Signs in Normal Range: Yes Patient Participated in Evaluation: Yes Respiratory Function Stable: Yes Airway Patent: Yes Cardiovascular Function Stable: Yes Hydration Status Stable: Yes Pain Control Satisfactory: Yes Nausea and Vomiting Control Satisfactory: Yes Mental Status Recovered: Yes Vital Signs: Last Vital Signs Temp 98.8 F 06/01/21 13:32 Pulse 99 06/01/21 13:32 Resp 15 06/01/21 13:32 BP 146/86 H 06/01/21 13:32 Pulse Ox 100 06/01/21 13:32 - COMMENTS/OBSERVATIONS Free Text/Narrative:: Visited with patient regarding epidural experience. Patient stated that it went well. Patient complaining of mild back discomfort at epidural site. Patient denying nausea, headache, ringing in ears, and dizziness. Reviewed signs and symptoms of a post-dural puncture headache, signs of infection, or if back pain increases. Encouraged patient to notify OB/Anesthesia if any of the above symptoms develop and so patient can be treated accordingly. Patient verbalized understanding. Patient and significant other did not verbalize any questions or concerns at this time. Diana Damian [employer]
--- NOTE | 2021-06-02 08:36 | PCM.SN.2 ---
- Free Text/Narrative Note: Post Progress Note PPD #2 Subjective: Doing well overall. Ambulating without difficulty. Reports that she has been able to ambulate overnight and this morning without any lightheadedness or dizziness. Lochia minimal at this time and is changing a pad every couple of hours.. Voiding without difficulty. Tolerating regular diet without nausea or vomiting. Pain controlled with oral medications. Breast-feeding with minimal difficulty. Denies any headaches, vision changes or epigastric pain. Objective: Vitals: Vital Signs - 24 hr 06/01/21 06/01/21 06/01/21 13:32 15:47 18:50 Temperature 37.1 C 38.0 C Temperature [ 37.1 C Temporal] Pulse, 99 96 Peripheral Respiratory 15 22 H Rate Blood Pressure 146/86 H 133/80 O2 Sat by Pulse 100 98 Oximetry 06/01/21 06/02/21 21:41 05:55 Temperature 36.8 C 36.7 C Temperature [ Temporal] Pulse, 87 78 Peripheral Respiratory 16 16 Rate Blood Pressure 130/79 129/89 O2 Sat by Pulse 97 98 Oximetry Physical Exam General: Alert and oriented, no acute distress Lungs: Clear to auscultation bilaterally Heart: Regular rate and rhythm Abdomen: Soft, minimal appropriate tenderness, non-distended, fundus midline, nontender, and at the umbilicus Extremities: 2+ edema in bilateral lower extremities to knees, no calf tenderness bilaterally ASSESSMENT: 25-year-old female -0-0-1 s/p normal vaginal delivery PPD #2, complicated by hemorrhage of 3 L with 2 units PRBC blood transfusion, preeclampsia with severe features and obesity in PLAN: Doing well at this time Patient without any concerning symptoms of acute blood loss anemia such as lightheadedness, dizziness or shortness of breath. She has been able to ambulate without difficulty. Patient's hemoglobin on PPD #1 was 9.4 after receiving 2 units PRBCs. We will continue to monitor throughout the day and ensure that she is doing well. Breast-feeding with minimal difficulty. Assist as needed Lochia minimal. Continue to monitor for appropriate lochia. Continue routine care Patient continues to have occasional mild range blood pressures. No blood pressures in a range that would need to be treated at this time. Continue to monitor for any signs or symptoms of severe preeclampsia that would necessitate treatment. Anticipate discharge home today if she continues to do well with ambulation and there is no evidence of anemia symptoms Gus Gomez MD 8:33 AM 06/02/2021
[2021-06-02] MEDS: Acetaminophen 325 MG Tab PO PRN (15:05)
--- NOTE | 2021-06-02 18:02 | PCM.DCSUM1 ---
Discharge Summary - Hospital Course Free Text/Narrative:: Stage I - Patient presented for induction of labor. Menezes bulb. AROM. Pitocin. Elevated blood pressures requiring labetolol. Diagnosed with pre-ecclampsia. Magnesium initiated. Progressed to complete with overall reassuring heart tones. Stage II - of viable male, weight 8#11 oz. 4/9 apgars at 1222. Head delivered in controlled manner over intact perineum. Body and shoulders followed atraumatically. Cord clamped and cut and to warmer. Cord blood collected. Stage III - of intact placenta. Immediately vigorous bleeding per vagina. Bladder emptied with straight catheter. Bimanual massage revealed boggy uterus. Continued bleeding. Magnesium discontinued. Cytotec 600 mcg buccal given. TXA initiated. Vigourous bleeding continued. Decision made to obtain labs and emergency release of 2 units pRBC and obtain labs. Bakri placed in usual fash ion. INstilled with 360. QBL 3000. Bleeding after bakri minimal. Diagnosis: Stroke: No - Discharge Data Discharge Date: 06/02/21 Discharge Disposition: Home, Self-Care 01 Condition: Good - Referral to Home Health Primary Care Physician: Lin oWo MD - Discharge Diagnosis/Problem(s) (1) 41 weeks gestation of SNOMED Code(s): 85463579 ICD Code: Z3A.41 - 41 WEEKS GESTATION OF Status: Acute Current Visit: Yes (2) Obesity affecting SNOMED Code(s): 403054997737, 473478482655 ICD Code: O99.210 - OBESITY COMPLICATING , UNSPECIFIED TRIMESTER Status: Acute Current Visit: Yes (3) Vaginal delivery SNOMED Code(s): 405053296 ICD Code: O80 - ENCOUNTER FOR FULL-TERM UNCOMPLICATED DELIVERY Status: Acute Current Visit: Yes (4) Second degree perineal laceration during delivery SNOMED Code(s): 1338363 ICD Code: O70.1 - SECOND DEGREE PERINEAL LACERATION DURING DELIVERY Status: Acute Current Visit: Yes (5) Severe preeclampsia SNOMED Code(s): 39083972 ICD Code: O14.10 - SEVERE PRE-ECLAMPSIA, UNSPECIFIED TRIMESTER Status: Acute Current Visit: Yes (6) hemorrhage SNOMED Code(s): 51542681 ICD Code: O72.1 - OTHER IMMEDIATE HEMORRHAGE Status: Acute Current Visit: Yes - Patient Summary/Data Complications: Severe preeclampsia that was treated with labetalol during labor and hemorrhage requiring 2 units PRBCs after delivery Consults: None Hospital Course: Araceli Zhang was admitted for induction of labor in the setting of late term . On admission her cervix was dilated to 2 cm. She was GBS negative.she had a 16 Pashto Menezes bulb catheter placed with speculum that was filled with 40 mL of sterile saline. She received 1 dose of Cytotec vaginally for induction of labor. She was noted to have several mild range blood pressures that persisted until the Menezes catheter came out. She had labs drawn that were overall normal except for urine protein/creatinine ratio that was elevated at 4.9. She was started on pitocin for augmentation of labor. She had artificial rupture of membranes with clear fluid. She had severe sustained blood pressures into the 160s to 170s/80s to 100s with one value that was at 145 diastolic. She was treated with labetalol 20 mg IV and continue to have severe range blood pressures and then was treated with labetalol 40 mg IV. She was started on magnesium sulfate IV for seizure prophylaxis. She was given an epidural for anesthesia. After she had placement of the epidural her blood pressures were in the normal to mild range values. She progressed to complete a nd began pushing. On 05/31/2021 she had a normal vaginal delivery of a live male at 12:22. Apgars of 4 and 9. Weight of 3930 g (8 pounds 10.6 ounces). After delivery she had significant bleeding and her bladder was emptied. The magnesium sulfate was discontinued. She was given 600 mcg of Cytotec buccally. She was given tranexamic acid. She had a Bakri balloon placed manually and was filled with 360 mL of sterile saline. She was given 2 units PRBCs and had labs drawn that were within normal limits. The remainder of her course was overall uneventful. In the afternoon of PPD #0 her creatinine was elevated to a value of 1.2. In the morning of PPD #1 she had the Bakri balloon removed and she did not have significant bleeding at that time. Her hematocrit was at 28.7 in the morning of PPD #1. Her creatinine improved to 0.8 in the morning of PPD #1. Her pain was well controlled and she had minimal lochia. In the morning of PPD #1 she continued to have mild lightheadedness and dizziness with ambulation but this improved throughout the day and she was not having any significant lightheadedness or dizziness in the evening of PPD #1. She was ambulating, tolerating a regular diet and voiding normally. She was breast-feeding with minimal difficulty. She was afebrile and her hematocrit was 28.7 on morning of PPD #1. She desired to be discharged home in the afternoon of PPD #2. Her blood type is O+. - Patient Instructions Diet: Regular Diet as Tolerated Activity: Apply Ice, As Tolerated Activity, Other: Nothing in the vagina for 6 weeks Driving: May Drive Today Showering/Bathing: May Shower Notify Provider of: Fever, Increased Pain, Swelling and Redness, Drainage, Nausea and/or Vomiting Other/Special Instructions: Please contact your physician's office if you have heavy vaginal bleeding enough to soak a pad in less than an hour for several hours. Monitor for any signs of an infection in the breasts with severe pain or redness of the breast. Please contact your physician's office if you have a severe headache that does not improve with Tylenol or ibuprofen, spots in your vision or severe pain in your upper abdomen. - Discharge Plan *PRESCRIPTION DRUG MONITORING PROGRAM REVIEWED*: Not Applicable *COPY OF PRESCRIPTION DRUG MONITORING REPORT IN PATIENT DELILAH: Not Applicable Prescriptions/Med Rec: Ibuprofen 600 mg PO Q6H PRN #60 tablet PRN Reason: Pain Home Medications: Home Meds Acetaminophen/oxyCODONE [Percocet 325-5 MG] 1 tab PO Q6H PRN #10 tablet 10/24/16 [Rx] Pnv No.95/Ferrous Fum/Folic AC [ Caplet] 1 tab-cap PO DAILY 05/30/21 [History] Acetaminophen [Tylenol] 650 mg PO Q6H PRN tablet 06/02/21 [Rx] Benzocaine/Menthol [Dermoplast Pain Relief [place]] 1 spray TOP ASDIRECTED PRN canister 06/02/21 [Rx] Ibuprofen 600 mg PO Q6H PRN #60 tablet 06/02/21 [Rx] arina Aguilar [Tucks] 1 pad TOP ASDIRECTED PRN pad 06/02/21 [Rx] Patient Handouts: Preeclampsia and Eclampsia, Care of a Perineal Tear, Care After Vaginal Delivery Referrals: Lin Woo MD [Primary Care Provider] - (Follow-up in 1 week for routine check and blood pressure check or earlier as needed.) - Discharge Summary/Plan Comment DC Time >30 min.: No - Patient Data Vitals - Most Recent: Last Vital Signs Temp 36.8 C 06/02/21 15:06 Pulse 91 06/02/21 15:06 Resp 15 06/02/21 15:06 BP 122/82 06/02/21 15:06 Pulse Ox 96 06/02/21 15:06 Weight - Most Recent: 117.934 kg I&O - Last 24 hours: Intake & Output 06/02/21 06/02/21 06/02/21 06:59 14:59 22:59 Intake Total 120 Balance 120 Med Orders - Current: Current Medications Acetaminophen (Acetaminophen 325 Mg Tab) 650 mg PO Q6H PRN PRN Reason: Breakthrough Pain Last Admin: 06/02/21 15:05 Dose: 650 mg Documented by: Benzocaine/Menthol (Benzocaine/Menthol 20%-0.5% [place] 56 Gm Canister) 0 gm TOP ASDIRECTED PRN PRN Reason: Perineal Comfort Measure Last Admin: 05/31/21 16:59 Dose: 1 ea Documented by: Oxycodone/Acetaminophen (Acetaminophen/Oxycodone 325-5 Mg Tab) 1 tab PO Q6H PRN PRN Reason: Pain Witch Lynette (Witch Lynette Medicated Pads 40/Jar) 1 pad TOP ASDIRECTED PRN PRN Reason: Perineal Comfort Measure Last Admin: 05/31/21 16:59 Dose: 1 ea Documented by: Discontinued Medications Acetaminophen (Acetaminophen 325 Mg Tab) 650 mg PO Q6H PRN PRN Reason: Pain (Mild 1-3) and fever Last Admin: 05/31/21 14:37 Dose: 650 mg Documented by: Bupivacaine HCl (Bupivacaine 0.25% 10 Ml Sdv) 10 ml .ROUTE .STK-MED ONE Stop: 05/31/21 16:01 Calcium Carbonate/Glycine (Calcium Carbonate 500 Mg Tab.Chew) 1,000 mg PO Q2HR PRN PRN Reason: Indigestion Last Admin: 05/31/21 04:11 Dose: 1,000 mg Documented by: Calcium Gluconate (Calcium Gluconate 10% 1 Gm/10 Ml Sdv) 1 gm IV ASDIRECTED PRN PRN Reason: respiratory distress Dexmedetomidine HCl (Dexmedetomidine 200 Mcg/2 Ml Sdv) Confirm Administered Dose 200 mcg .ROUTE .STK-MED ONE Stop: 05/31/21 07:19 Diphenhydramine HCl (Diphenhydramine 50 Mg/Ml Sdv) 25 mg IVPUSH Q6H PRN PRN Reason: pruritis Ephedrine Sulfate (Ephedrine 50 Mg/Ml Sdv) 5 mg IVPUSH ASDIRECTED PRN PRN Reason: Hypotension Fentanyl (Fentanyl 100 Mcg/2 Ml Sdv) 100 mcg EPIDUR Q3H PRN PRN Reason: Pain Last Admin: 05/30/21 22:01 Dose: 100 mcg Documented by: Fentanyl (Fentanyl 100 Mcg/2 Ml Sdv) Confirm Administered Dose 100 mcg .ROUTE .STK-MED ONE Stop: 05/31/21 07:23 Fentanyl/Bupivacaine HCl (Bupivacaine/Fentanyl/Ns 100 Ml Bag) 100 ml EPIDUR ASDIRECTED PRN PRN Reason: Pain Last Admin: 05/31/21 05:12 Dose: 100 ml Documented by: Lactated Ringer's (Ringers, Lactated) 1,000 mls @ 100 mls/hr IV ASDIRECTED ALEJANDRO Last Admin: 05/30/21 17:24 Dose: 100 mls/hr Documented by: Oxytocin/Lactated Ringer's (Pitocin In Lr 10 Units/1,000 Ml) 10 unit in 1,000 mls @ 100 mls/hr IV .CONTINUOUS ALEJANDRO Last Infusion: 05/31/21 13:49 Dose: 250 mls/hr Documented by: Oxytocin/Lactated Ringer's (Pitocin In Lr 10 Units/1,000 Ml) 10 unit in 1,000 mls @ 12 mls/hr IV TITRATE ALEJANDRO; Protocol Last Titration: 05/31/21 08:58 Dose: 17 munits/min, 102 mls/hr Documented by: Magnesium Sulfate (Magnesium Sulfate In Water 4 Gm/50 Ml) Confirm Administered Dose 50 mls @ as directed .ROUTE .STK-MED ONE Stop: 05/30/21 21:29 Magnesium Sulfate (Magnesium Sulfate In Water 40 Gm/1000 Ml) Confirm Administered Dose 40 gm in 1,000 mls @ as directed .ROUTE .[employer]-MED ONE Stop: 05/30/21 21:29 Last Admin: 05/30/21 22:00 Dose: 50 mls/hr Documented by: Magnesium Sulfate 4 gm/ Premix 50 mls @ 400 mls/hr IV ONETIME ONE Stop: 05/30/21 22:23 Last Admin: 05/30/21 21:50 Dose: 400 mls/hr Documented by: Magnesium Sulfate 2 gm/ Premix 50 mls @ 50 mls/hr IV ONETIME ONE Stop: 05/30/21 23:15 Lactated Ringer's (Ringers, Lactated) 1,000 mls @ 25 mls/hr IV ASDIRECTED ALEJANDRO Last Admin: 05/30/21 21:50 Dose: 25 mls/hr Documented by: Magnesium Sulfate (Magnesium Sulfate In Water 40 Gm/1000 Ml) 40 gm in 1,000 mls @ 50 mls/hr IV ASDIRECTED ALEJANDRO Sodium Chloride (Normal Saline) 1,000 mls @ 75 mls/hr IV ASDIRECTED ALEJANDRO Sodium Chloride (Normal Saline) Confirm Administered Dose 1,000 mls @ as directed .ROUTE .STK-MED ONE Stop: 05/31/21 12:42 Sodium Chloride (Normal Saline) Confirm Administered Dose 500 mls @ as directed .ROUTE .STK-MED ONE Stop: 05/31/21 13:09 Cefoxitin Sodium 1 gm/ Premix 50 mls @ 100 mls/hr IV ONETIME ONE Stop: 05/31/21 19:19 Last Admin: 05/31/21 19:06 Dose: 100 mls/hr Documented by: Labetalol HCl (Labetalol 100 Mg/20 Ml Mdv) Confirm Administered Dose 100 mg .ROUTE .STK-MED ONE Stop: 05/30/21 21:22 Last Admin: 05/30/21 21:54 Dose: 40 mg Documented by: Lidocaine/Epinephrine (Lidocaine 1.5% With Epinephrine 1:200,000 5 Ml Amp) 5 ml .ROUTE .STK-MED ONE Stop: 05/31/21 16:01 Misoprostol (Misoprostol 25 Mcg (1/4 Of 100 Mcg) Tab) 25 mcg VAG Q4H PRN PRN Reason: cervical ripening Last Admin: 05/30/21 13:29 Dose: 25 mcg Documented by: Misoprostol (Misoprostol 200 Mcg Tab) 600 mcg .ROUTE .STK-MED ONE Stop: 05/31/21 13:01 Misoprostol (Misoprostol 200 Mcg Tab) 600 mcg PO .ONE ONE Stop: 05/31/21 12:31 Last Admin: 05/31/21 12:28 Dose: 600 mcg Documented by: Nalbuphine HCl (Nalbuphine 10 Mg/1 Ml Vial) 10 mg IVPUSH Q2H PRN PRN Reason: Pain Ondansetron HCl (Ondansetron 4 Mg/2 Ml Sdv) Confirm Administered Dose 4 mg .ROUTE .STK-MED ONE Stop: 05/30/21 21:49 Sodium Chloride (Sodium Chloride 0.9% 10 Ml Syringe) 10 ml FLUSH ASDIRECTED PRN PRN Reason: Keep Vein Open Tranexamic Acid (Tranexamic Acid 1,000 Mg/10 Ml Amp) Confirm Administered Dose 1,000 mg .ROUTE .STK-MED ONE Stop: 05/31/21 12:30 Tranexamic Acid (Tranexamic Acid 1,000 Mg/10 Ml Amp) 1,000 mg IVPUSH .ONETIME ONE Stop: 05/31/21 12:46 Last Admin: 05/31/21 12:32 Dose: 1,000 mg Documented by:
[2021-06-02 22:40] VITALS: BP 149/80; PULSE 66
== END 2021-06-02 21:30 | disposition home or self-care (01) | DRG 560 ==
LOC: JD.OBCHECK 11:51 → JD.OB 11:56 → OBSVTOIN 05-31 12:22 → JD.OB 05-31 12:23
PROVIDERS: ADMIT Obstetrics & Gynecology; ATTEND Obstetrics & Gynecology
PROC: 10E0XZZ Delivery of Products of Conception, External Approach (ICD-10-PCS; principal; 2021-05-31)
PROC: 10907ZC Drainage of Amniotic Fluid, Therapeutic from Products of Conception, Via Natural or Artificial Opening (ICD-10-PCS; 2021-05-31)
PROC: 3E0P7VZ Introduction of Hormone into Female Reproductive, Via Natural or Artificial Opening (ICD-10-PCS; 2021-05-31)
PROC: 3E0R3BZ Introduction of Anesthetic Agent into Spinal Canal, Percutaneous Approach (ICD-10-PCS; 2021-05-31)
PROC: 00HU33Z Insertion of Infusion Device into Spinal Canal, Percutaneous Approach (ICD-10-PCS; 2021-05-31)
PROC: 30233N1 Transfusion of Nonautologous Red Blood Cells into Peripheral Vein, Percutaneous Approach (ICD-10-PCS; 2021-05-31)
DX: O48.0 Post-term pregnancy (principal); Z37.0 Single live birth; Z3A.41 41 weeks gestation of pregnancy; O99.214 Obesity complicating childbirth; O70.1 Second degree perineal laceration during delivery; Z20.822 Contact with and (suspected) exposure to COVID-19; O14.14 Severe pre-eclampsia complicating childbirth; O72.1 Other immediate postpartum hemorrhage; Z88.2 Allergy status to sulfonamides; O99.62 Diseases of the digestive system complicating childbirth; K21.9 Gastro-esophageal reflux disease without esophagitis
CPT/HCPCS: 01967; 36415; 36430; 51702; 59025; 59409; 80053; 82570; 83615; 84156; 85025; 85027; 85384; 85610; 85730; 86592; 86850; 86900; 86901; 86922; A9270-GY; J0694; J2590; J3010; J3475; J3490; J7120; P9016; U0002

== ENCOUNTER 2023-03-07 07:24 | Inpatient (IN) | payer BC ==
[~2023-03-07 07:24] MED LIST: Bupivacaine 0.25% 10 ML SDV ONE
[2023-03-07] MEDS ORDERED: Calcium Carbonate 500 MG Tab.Chew PO PRN (07:39)
[2023-03-07] MEDS ORDERED: Ondansetron 4 MG/2 ML SDV IVPUSH PRN (07:39)
[2023-03-07] MEDS ORDERED: Nalbuphine 10 MG/0.5 ML Syringe IVPUSH PRN (07:39)
[2023-03-07] MEDS ORDERED: Oxytocin/Lactated Ringers 10 UNIT/1,000 ML BAG IV SCH ×2 (07:45→08:00)
[2023-03-07] MEDS: Lactated Ringers 1,000 ML IV SCH ×3 (08:28→16:54)
[2023-03-07] MEDS ORDERED: Bupivacaine/fentaNYL/NS 100 ML Bag EPIDUR PRN (08:51)
[2023-03-07] MEDS ORDERED: diphenhydrAMINE 50 MG/ML SDV IVPUSH PRN (08:51)
[2023-03-07] MEDS ORDERED: fentaNYL 100 MCG/2 ML SDV EPIDUR PRN (08:51)
[2023-03-07] MEDS ORDERED: ePHEDrine 50 MG/ML SDV IVPUSH PRN (08:51)
[2023-03-07] MEDS ORDERED: Methylergonovine 0.2 MG/ML SDV IM ONE (20:14)
[2023-03-07] MEDS ORDERED: Misoprostol 200 MCG Tab PO STA (20:19)
[2023-03-07] MEDS ORDERED: Witch Hazel Medicated Pads 40/Jar TOP PRN (23:32)
[2023-03-07] MEDS ORDERED: Docusate Sodium 100 MG Cap PO PRN (23:32)
[2023-03-07] MEDS ORDERED: Benzocaine/Menthol 20%-0.5% Spray 78 GM Cannister TOP PRN (23:32)
[2023-03-07] MEDS ORDERED: Ibuprofen 600 MG Tab PO PRN (23:32)
[2023-03-07] MEDS ORDERED: Acetaminophen 325 MG Tab PO PRN (23:32)
[2023-03-09 09:46] VITALS: BP 115/54; PULSE 85
== END 2023-03-09 09:55 | disposition home or self-care (01) | DRG 560 ==
LOC: JD.OB 07:24 → OBSVTOIN 20:02 → JD.OB 20:02
PROVIDERS: ADMIT Obstetrics & Gynecology; ATTEND Obstetrics & Gynecology
PROC: 10E0XZZ Delivery of Products of Conception, External Approach (ICD-10-PCS; principal; 2023-03-07)
PROC: 10907ZC Drainage of Amniotic Fluid, Therapeutic from Products of Conception, Via Natural or Artificial Opening (ICD-10-PCS; 2023-03-07)
PROC: 3E033VJ Introduction of Other Hormone into Peripheral Vein, Percutaneous Approach (ICD-10-PCS; 2023-03-07)
PROC: 3E0P7VZ Introduction of Hormone into Female Reproductive, Via Natural or Artificial Opening (ICD-10-PCS; 2023-03-07)
PROC: 10H07YZ Insertion of Other Device into Products of Conception, Via Natural or Artificial Opening (ICD-10-PCS; 2023-03-07)
PROC: 3E0R3BZ Introduction of Anesthetic Agent into Spinal Canal, Percutaneous Approach (ICD-10-PCS; 2023-03-07)
PROC: 00HU33Z Insertion of Infusion Device into Spinal Canal, Percutaneous Approach (ICD-10-PCS; 2023-03-07)
DX: O72.1 Other immediate postpartum hemorrhage (principal); Z88.2 Allergy status to sulfonamides; Z79.82 Long term (current) use of aspirin; Z37.0 Single live birth; Z3A.39 39 weeks gestation of pregnancy
CPT/HCPCS: 36415; 51702; 59025; 59409; 85025; 85027; 85384; 85610; 85730; 86592; 86850; 86900; 86901; A9270-GY; J2210; J2405; J2590; J3010; J3490; J7120